=== PATIENT | female | born 1985 | race Caucasian/White ===

== ENCOUNTER 2016-08-23 22:58 | Emergency (ER) | payer SELFPAY ==
[~2016-08-23] VITALS: Ht 165.1 cm; Wt 73.5 kg
[2016-08-23 23:10] VITALS: BP 145/86
[2016-08-23] MEDS ORDERED: KETOROLAC 60 MG/2 ML (TORADOL) VIAL IM ONE (23:40)
[2016-08-23] MEDS ORDERED: ORPHENADRINE 60 MG/2 ML (NORFLEX) AMP IM ONE (23:40)
--- NOTE | 2016-08-23 23:53 | NUR ---
Norflex given IM per order.
[2016-08-24] MEDS ORDERED: HYDROmorphone 1 MG/ML (DILAUDID) SYRINGE IM ONE ×2 (00:25→00:35)
[2016-08-24] MEDS ORDERED: PROMETHAZINE 25 MG/ML (PHENERGAN) 1 ML VIAL IM ONE (00:25)
[2016-08-24] MEDS ORDERED: ED- oxyCODONE/ACETAMINOPHEN 5MG-325MG (PERCOCET) 8 TABLETS/BTL PO ONE (00:30)
--- NOTE | 2016-08-24 00:43 | NUR ---
Phenergan given IM per order not IV.
== END 2016-08-24 01:00 | disposition home or self-care (01) ==
LOC: ED 23:00
DX: M54.89 Other dorsalgia (principal)
CPT/HCPCS: 71020; 96372; 99282; J1170; J1885; J2360; J2550; 99283

== ENCOUNTER → 2016-10-26 | Outpatient (CLI) | payer MEDICAID ==
[~2016-10-26] MED LIST: ACYC400T PO; ALB0.5V INH; AMOX500C5 PO; CTLP20T PO; DPH25C PO; MNTL10T PO
--- NOTE | 2016-10-26 14:12 | Diagnostic Imaging Report ---
INDICATION: Threatened AB. FINDINGS: There is irregular-appearing intrauterine gestational sac. This measures approximately 1.5 x 0.6 cm. There is a small well-circumscribed density within the sac. No yolk sac is definitely seen. The oval solid structure measures approximately 3 mm. No evidence of M-mode cardiac activity. There are multiple cysts in the right ovary largest measuring 4 cm which appears benign. There is normal blood flow to both ovaries. There is no free fluid. IMPRESSION: Finding consistent with intrauterine gestational with irregular gestational sac. What appears to represent small pole measures 3 mm consistent with 6 week gestation. There is no evidence of cardiac activity. Findings likely represent demise. Short-term followup recommended. Dictated by: Dictated on workstation # [id number]
== END ==
LOC: RAD 09:07
PROVIDERS: ATTEND Obstetrics & Gynecology
DX: O20.0 Threatened abortion (principal); O36.80X1 Pregnancy with inconclusive fetal viability, fetus 1
CPT/HCPCS: 76801; 76817

== ENCOUNTER → 2016-11-01 | Outpatient (CLI) | payer MEDICAID ==
[2016-11-01 16:41] VITALS: BP 100/60
--- NOTE | 2016-11-01 16:41 | Urgent Care T Sheet Gen (E) ---
Intake General Temperature (Fahrenheit): 97.9 Pulse: 78 Blood Pressure Systolic: 100 Blood Pressure Diastolic: 60 Respirations: 20 SPO2: 96 Description of Symptoms patient presents with illness x 2 days. Notes heartburn, nausea and vomiting, malaise and cough due to allergies. patient is currently [address] Forrest. States this feels different than typical "morning sickness". States she was able to function before wiht morning sickness, she feels wiped out now and doesn't want to do anything. No fever. Took some Tums for heartburn. Also took some Tylenol for headache. Takes Flonase and singular as well as inhaler as needed for allergies. sees Dr Adriane seay for f/u appt. History of Present Illness Allergies: Coded Allergies: clindamycin (Verified Allergy, Intermediate, hives , 05/31/16) varenicline (Verified Allergy, Intermediate, hives, 05/31/16) Home Meds Reported Medications Citalopram Hydrobromide 20 Mg [id number] Mg PO DAILY 05/31/16 Albuterol (Proventil 0.5%)2.5 Mg/0.5 Ml Nebu2.5 Mg INH NEEDED Reactive Airway 05/31/16 Montelukast Sodium 10 Mg [id number] Mg PO DAILY 05/31/16 Respiratory Constitutional Symptoms: No Fever, Malaise EENTM: No symptoms reported Respiratory: Cough Cardiovascular: No symptoms reported Gastrointestinal/Abdominal: Nausea Vomiting Other (heart burn) All Other Systems Reviewed Remaining Systems: All other systems reviewed with negative findings Past Omrhncb-Nafhmx-Snxbow Hx Patient's Social History Alcohol Use: Rarely Uses Smoking Status: Former smoker Recent foreign travel: No Surgeries/Hospitalizations Hospitalization/Surgery Hx: none Respiratory Respiratory History: Asthma Cardiovascular Comment: HX SVT Reproductive System Sexually Transmitted Diseases: No Gastrointestinal GI/Endocrine History: None Diabetes Diabetes: No HEENT Impaired Vision: None Hearing Impaired: None Psychosocial Behavior Disorders: Anxiety, Depression Physical Exam Physical Exam General Appearance: WD/WN No apparent distress (appears ill) Eyes, Ears, Nose, Throat Ex: TMs normal Pharynx normal (moist membranes) Other (nose is clear) Neck Exam: SuppleNo Lymphadenopathy Respiratory Exam: Lungs clear Normal breath sounds Cardiovascular Exam: Regular rate, rhythm GI/ Exam: Non tender Abnormal bowel sound (hyperactive in all quadrants.)No Tenderness, No Guarding, No Rebound Skin Exam: Diaphoresis Departure Urgent Care Impression Impression: Primary Impression: Nausea & vomiting Qualified Code: R11.2 - Nausea with vomiting, unspecified Additional Impression: Qualified Code: Z3A.01 - Less than 8 weeks gestation of Departure Disposition: 01 HOME OR SELF-CARE Condition: Stable Additional Instructions: Long discussion with patient regarding symptoms. It appears more like a viral gastroenteritis as opposed to n/v in . Either way, will treat the same. Per Up To Date, Zofran isn't recommended until the 2nd trimester. That said, they suggested Meclizine instead for n/v. May cause drowsiness, was advised. She may also continue with Tums or may take Zantac 75mg BID for her heartburn. BRAT diet. Rest. Sips and chips F/U with Dr Forrest if symptoms persist Patient understands DC instructions. All questions were answered. End of report . [place]IP [place] November 01, 2016 16:41
== END ==
LOC: MHUC 15:44
PROVIDERS: ATTEND Physician Assistant
DX: R11.2 Nausea with vomiting, unspecified (principal); Z3A.01 Less than 8 weeks gestation of pregnancy
CPT/HCPCS: 99213

== ENCOUNTER → 2016-11-03 | Outpatient (CLI) | payer MEDICAID ==
--- NOTE | 2016-11-03 16:11 | Diagnostic Imaging Report ---
EXAMINATION: Ultrasound OB, less than 14 weeks. TECHNIQUE: Multiple real-time grayscale images were obtained over the gravid uterus in various projections. INDICATION: Possible early . No cardiac activity seen on most recent sonogram. COMPARISON: 10/26/2016. FINDINGS: Again noted is an irregular-appearing gestational sac with an adjacent hypoechoic area, likely a perigestational bleed. Within the gestational sac, an echogenic rounded area is noted; likely a yolk sac with a separate elongated echogenic region, perhaps the pole. If this is the pole, this corresponds with a 6 weeks 1 day . However when compared to the previous sonogram obtained almost 10 days ago, no significant interval change in size is appreciated suggesting demise. No heart tones appreciated. There is a very large cystic lesion in the right ovary which measures 4.5 x 5.4 cm. The largest on previous examination previously measured 4.2 cm in greatest dimension. Multiple adjacent smaller prominent cystic areas are noted. No free fluid in the cul-de-sac or adjacent to the ovary is seen. The left ovary contains small cystic changes, likely small follicles. IMPRESSION: 1. No interval change in size of the pole since previous imaging with no heart tones appreciated suggesting demise. Correlation with beta hCG is recommended. 2. Gestational bleed is suspected. 3. Large cystic lesion in the right ovary, slightly increased in size but most likely a corpus luteal cyst. Short-term interval followup could reevaluate this lesion as well to assure resolution of the findings, as above. Preliminary report called to Dr. Forrest's nurse at the time of scanning per the automat car attendant on 11/03/2016. Dictated by: Dictated on workstation # [id number]
== END ==
LOC: RAD 14:24
PROVIDERS: ATTEND Obstetrics & Gynecology
DX: O20.0 Threatened abortion (principal); O36.80X1 Pregnancy with inconclusive fetal viability, fetus 1; N83.11 Corpus luteum cyst of right ovary
CPT/HCPCS: 76801